=== PATIENT | male | born 2005 | race Two or more races ===

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

== ENCOUNTER 2024-01-27 11:10 | Emergency (ER) | payer MEDICAID, OTHER ==
[~2024-01-27] VITALS: Ht 182.9 cm; Wt 161.0 kg
[2024-01-27 11:30] VITALS: BP 161/103; TEMP 97.9
[2024-01-27] MEDS ORDERED: CIPR7.5D9 LEFT EAR (11:49)
[2024-01-27 12:06] VITALS: O2SAT 99
== END 2024-01-27 12:07 | disposition home or self-care (01) ==
LOC: ER 11:10
DX: H92.02 Otalgia, left ear (principal)

== ENCOUNTER 2024-05-05 12:40 | Emergency (ER) | payer MEDICAID ==
[~2024-05-05] VITALS: Ht 180.3 cm; Wt 167.8 kg
[~2024-05-05 12:40] MED LIST: CIPR7.5D9 LEFT EAR
[2024-05-05 13:12] VITALS: BP 147/87; TEMP 98.7
[2024-05-05] MEDS ORDERED: FLUORESCEIN SODIUM OPHTH 1 EA STRIP ONE (13:26)
[2024-05-05] MEDS ORDERED: TETRAcaine 5 ML BOTTLE ONE (13:26)
[2024-05-05] MEDS: FLUORESCEIN SODIUM OPHTH 1 EA STRIP OP ONE (13:41)
[2024-05-05] MEDS: TETRACAINE HCL 0.5% OPHTALMIC 15 ML BOTTLE OP ONE (13:42)
[2024-05-05] MEDS ORDERED: CIPR5DRO18 LEFTEYE (14:09)
[2024-05-05] MEDS ORDERED: ERYT3.5O9 LEFTEYE (14:09)
[2024-05-05 14:20] VITALS: O2SAT 97
== END 2024-05-05 14:20 | disposition home or self-care (01) ==
LOC: ER 12:40
DX: H16.002 Unspecified corneal ulcer, left eye (principal)